=== PATIENT | male | born 1950 | race Caucasian/White ===

== ENCOUNTER 2017-06-12 21:40 | Emergency (ER) | payer BC ==
[~2017-06-12] VITALS: Ht 165.1 cm; Wt 86.7 kg
[~2017-06-12 21:40] MED LIST: FLUT16SP24 NS; IBUP-1542 PO; LIPITOR; NAPROSYN PO; OSLT75C PO; PROM5SYR2 PO; RANITIDINE PO; RTPRO5 INH
[2017-06-12 21:46] VITALS: Ht 165.1 cm; Wt 86.7 kg
[2017-06-12] MEDS ORDERED: METHYLPREDNISOLONE 125 MG INJ IV STA (22:49)
[2017-06-12] MEDS ORDERED: ALBUTEROL 0.083% (NEB) 2.5 MG/3 ML AMP NEB STA (22:49)
[2017-06-12] MEDS ORDERED: IPRATROPIUM (NEB) 0.5 MG/2.5 ML AMP NEB STA (22:49)
--- NOTE | 2017-06-12 23:04 | ERD ---
ER Documentation Chief Complaint Chief Complaint BIB FAMILY C/O SOB X 3 WEEK. HX OF ASTHMA HPI 67-year-old male presents here in emergency department for complaints of shortness of breath cough and wheezing for 3 weeks now. Patient has history of asthma. Patient has been having dry cough, does not cough up any phlegm or blood. Patient is complaining of upper back pain and chest pain from coughing too much. Patient denies any dyspnea on exertion or dizzy on lying down. Patient denies any dizziness. ROS All systems reviewed and are negative except as per history of present illness. Medications Home Meds Active Scripts Ibuprofen* (Motrin*) 600 Mg Tab, 600 MG PO Q6H Y for PAIN, #20 TAB Prov:CARLOS MERCEDES MD 05/16/16 Promethazine HCl/Codeine (Prometh-Codein 6.25-10 mg/5 ml) 5 Ml Syrup, 5 ML PO QID for 5 Days 6 ounces Prov:CARLOS MERCEDES MD 05/16/16 Oseltamivir Phosphate* (Tamiflu*) 75 Mg Capsule, 75 MG PO BID for 5 Days, CAP Prov:CARLOS MERCEDES MD 05/16/16 Reported Medications [Naprosyn] No Conflict Check, PO BID 08/17/13 [Ranitidine] No Conflict Check, 20 MG PO BID 08/17/13 Albuterol Sulfate* (Proventil* Neb) 0.5 Ml Nebu, INH Q4 02/12/12 Fluticasone Propionate* (Flonase* Nasal) 16 Gm [place].susp, NS DAILY 02/12/12 [Lipitor] No Conflict Check 07/13/09 Allergies Allergies: Coded Allergies: No Known Allergy (Verified , 05/27/12) PMhx/Soc History of Surgery: No Anesthesia Reaction: No Hx Neurological Disorder: No Hx Respiratory Disorders: No Hx Cardiac Disorders: No Hx Psychiatric Problems: No Hx Miscellaneous Medical Probl: Yes (HTN, DM, Asthma) Hx Alcohol Use: No Hx Substance Use: No Hx Tobacco Use: No Smoking Status: Never smoker FmHx Family History: No coronary disease, No diabetes, No other Physical Exam Vitals Vital Signs Date Time Temp Pulse Resp B/P Pulse Ox O2 Delivery O2 Flow Rate FiO2 06/12/17 23:10 89 18 96 21 06/12/17 21:46 97.7 90 18 150/82 95 Physical Exam GENERAL: The patient is well developed and appropriate for usual state of health, in no apparent distress. CHEST: Diffuse wheezing noted bilaterally. There are no rales, or rhonchi. HEART: Regular rate and rhythm. No murmurs, clicks, rubs or gallops. No S3 or S4. ABDOMEN: Soft, nontender and nondistended. Good bowel sounds. No rebound or guarding. No gross peritonitis. No gross organomegaly or masses. No Hcun sign or McBurney point tenderness. BACK: No midline or flank tenderness. EXTREMITIES: Equal pulses bilaterally. There is no peripheral clubbing, cyanosis or edema. No focal swelling or erythema. Full range of motion. Grossly neurovascularly intact. NEURO: Alert and oriented. Cranial nerves 2-12 intact. Motor strength in all 4 extremities with 5/5 strength. Sensation grossly intact. Normal speech and gait. SKIN: There is no apparent rash or petechia. The skin is warm and dry. HEMATOLOGIC AND LYMPHATIC: There is no evidence of excessive bruising or lymphedema. No gross cervical, axillary, or inguinal lymphadenopathy. Result Diagram: 06/12/17229906/12/172299 Results 24 hrs Laboratory Tests Test 06/12/17 23:00 White Blood Count 8.110^3/ul Red Blood Count 4.3410^6/ul Hemoglobin 13.8g/dl Hematocrit 40.7% Mean Corpuscular Volume 93.8fl Mean Corpuscular Hemoglobin 31.8pg Mean Corpuscular Hemoglobin Concent 33.9g/dl Red Cell Distribution Width 14.2% Platelet Count 14408^3/UL Mean Platelet Volume 9.9fl Neutrophils % 69.4% Lymphocytes % 22.9% Monocytes % 5.7% Eosinophils % 1.1% Basophils % 0.4% Nucleated Red Blood Cells % 0.0/100WBC Neutrophils # 5.610^3/ul Lymphocytes # 1.910^3/ul Monocytes # 0.510^3/ul Eosinophils # 0.110^3/ul Basophils # 0.010^3/ul Nucleated Red Blood Cells # 0.010^3/ul Sodium Level 141mmol/L Potassium Level 4.5mmol/L Chloride Level 106mmol/L Carbon Dioxide Level 19mmol/L Anion Gap 21 Blood Urea Nitrogen 21mg/dl Creatinine 1.17mg/dl Glucose Level 109mg/dl Calcium Level 9.3mg/dl Total Bilirubin 0.2mg/dl Direct Bilirubin 0.00mg/dl Indirect Bilirubin 0.2mg/dl Aspartate Amino Transf (AST/SGOT) 50IU/L Alanine Aminotransferase (ALT/SGPT) 60IU/L Alkaline Phosphatase 70IU/L Troponin I < 0.012ng/ml B-Type Natriuretic Peptide 80PG/ML Total Protein 7.3g/dl Albumin 4.4g/dl Globulin 2.90g/dl Albumin/Globulin Ratio 1.51 Current Medications Medications (Trade) Dose Ordered Sig/Curt Route PRN Reason Start Time Stop Time Status Last Admin Dose Admin Albuterol (Proventil 0.083% (Neb)) 5 mg ONCE STAT NEB 06/12/17 22:49 06/12/17 22:52 DC 06/12/17 23:06 Ipratropium [place] (Atrovent 0.02% (Neb)) 0.5 mg ONCE STAT NEB 06/12/17 22:49 06/12/17 22:52 DC 06/12/17 23:06 Methylprednisolone Sodium Succinate (Solu-Medrol) 125 mg ONCE STAT IV 06/12/17 22:49 06/12/17 22:52 DC 06/12/17 23:21 Breathing treatment of albuterol and Atrovent was given here in emergency department, after treatment, patient's lungs sounds are clear and patient's oxygenation is better. Patient verbalized feeling much better. Solu-Medrol IM injection was given here in the emergency department for treatment for asthma. EKG was done, read by me and is normal sinus rhythm at a rate of 83, normal axis , there is no ST changes or changes in the EKG that indicates any cardiac emergencies at this time. Patient's EKG was also reviewed by Dr. Lino. Impression: no acute findings on EKG PROCEDURE: Portable chest x-ray. CLINICAL INDICATION: 67-year of age, male. Asthma exacerbation. TECHNIQUE: Portable AP view of the chest. COMPARISON: May 16, 2016 FINDINGS: Cardiomediastinal contours are normal. Lungs are clear. Negative for pleural effusion or pneumothorax. Mild curvature of the upper thoracic spine convex right. Additional comment: None. IMPRESSION: Negative for evidence of an acute chest process. RPTAT: HCTS Physician Neno Date Time Electronically viewed and signed by Alphonso Duran Physician on 06/13/2017 00: 06 CS/ CC: BEKA HICKS CONSTRUCTION ENGINEER Procedures/MDM Medical Decision Making: Patient symptoms are most likely consistent with acute bronchitis, which atypical in origin. There is low suspicion for Pneumonia at this time since patients lungs sounds are clear, patient O2 saturation is normal and patient doesnt show any respiratory distress. Patient s chest xray doesnt show infiltrates or any other cardiopulmonary emergencies at this time. There is low suspicion for other cardiopulmonary emergencies at this time such as CHF, Pulmonary Embolism, Pneumothorax, Aortic Aneurysm or any other cardiopulmonary emergencies at this time. There is low suspicion for sepsis. Patient appears well and is hemodynamically stable. Fever is controlled with medicines. . Disposition: Home. Condition: Stable Prescriptions: Azithromycin, ProAir, Prednisone, Guaifenasin with codeine, Zyrtec Instructions: Patient is advised to take medications as prescribed. Patient is advised to rest. Patient advised to increase fluid intake, do humidifier at home and if possible, do salt water gargles. Patient is advised that if symptoms are worse, shortness of breath, uncontrolled fever, stridor, vomiting, worst signs and symptoms to return to emergency department immediately. Otherwise, patient is advised to follow up with primary doctor in 5-7 days. Disclaimer: Inadvertent spelling and grammatical errors are likely due to EHR/ dictation software use and do not reflect on the overall quality of patient care. Also, please note that the electronic time recorded on this note does not necessarily reflect the actual time of the patient encounter. Departure Diagnosis: Primary Impression: Acute bronchitis Bronchitis organism: unspecified organism Qualified Code: J20.9 - Acute bronchitis, unspecified organism Condition: Stable Patient Instructions: Bronchitis, Antiobiotic Treatment (Adult) Additional Instructions: Patient is advised to take medications as prescribed. Patient is advised to rest. Patient advised to increase fluid intake, do humidifier at home and if possible, do salt water gargles. Patient is advised that if symptoms are worse, shortness of breath, uncontrolled fever, stridor, vomiting, worst signs and symptoms to return to emergency department immediately. Otherwise, patient is advised to follow up with primary doctor in 5-7 days. BEKA HICKS NP Jun 12, 2017 23:04
[2017-06-12 23:18] LABS: BASOPHILS % 0.4 % (0.0-2.0); EOSINOPHILS # 0.1 10^3/ul (0.0-0.5); EOSINOPHILS % 1.1 % (0.0-7.0); HEMATOCRIT 40.7 % (42.0-52.0); HEMOGLOBIN 13.8 g/dl (14.0-18.0); LYMPHOCYTES # 1.9 10^3/ul (0.8-2.9); LYMPHOCYTES % 22.9 % (15.0-51.0); MEAN CORPUSCULAR HEMOGLOBIN 31.8 pg (29.0-33.0); MEAN CORPUSCULAR HGB CONC 33.9 g/dl (32.0-37.0); MEAN CORPUSCULAR VOLUME 93.8 fl (82.0-101.0); MEAN PLATELET VOLUME 9.9 fl (7.4-10.4); MONOCYTE # 0.5 10^3/ul (0.3-0.9); MONOCYTES % 5.7 % (0.0-11.0); NEUTROPHIL # 5.6 10^3/ul (1.6-7.5); NEUTROPHILS % 69.4 % (39.0-77.0); PLATELET COUNT 242 10^3/UL (140-415); RED BLOOD COUNT 4.34 10^6/ul (4.70-6.10); RED CELL DISTRIBUTION WIDTH 14.2 % (11.5-14.5); WHITE BLOOD COUNT 8.1 10^3/ul (4.8-10.8)
[2017-06-12 23:36] LABS: ALANINE AMINOTRANSFERASE 60 IU/L (13-69); ALBUMIN 4.4 g/dl (3.3-4.9); ALBUMIN/GLOBULIN RATIO 1.51; ALKALINE PHOSPHATASE 70 IU/L (42-121); ANION GAP 21 (8-16); ASPARTATE AMINO TRANSFERASE 50 IU/L (15-46); BILIRUBIN,INDIRECT 0.2 mg/dl (0-1.1); BILIRUBIN,TOTAL 0.2 mg/dl (0.2-1.3); BLOOD UREA NITROGEN 21 mg/dl (7-20); CALCIUM 9.3 mg/dl (8.4-10.2); CARBON DIOXIDE 19 mmol/L (21-31); CHLORIDE 106 mmol/L (97-110); CREATININE 1.17 mg/dl (0.61-1.24); GLUCOSE 109 mg/dl (70-220); POTASSIUM 4.5 mmol/L (3.5-5.1); SODIUM 141 mmol/L (135-144); TOTAL PROTEIN 7.3 g/dl (6.1-8.1)
[2017-06-12 23:48] LABS: B-TYPE NATRIURETIC PEPTIDE 80 PG/ML (0-125)
[2017-06-12 23:49] LABS: TROPONIN-I < 0.012 ng/ml (0.00-0.12)
--- NOTE | 2017-06-13 00:06 | RADRPT ---
PROCEDURE: Portable chest x-ray. CLINICAL INDICATION: 67-year of age, male. Asthma exacerbation. TECHNIQUE: Portable AP view of the chest. COMPARISON: May 16, 2016 FINDINGS: Cardiomediastinal contours are normal. Lungs are clear. Negative for pleural effusion or pneumothorax. Mild curvature of the upper thoracic spine convex right. Additional comment: None. IMPRESSION: Negative for evidence of an acute chest process. RPTAT: HCTS Physician Neno Date Time Electronically viewed and signed by Alphonso Duran Physician on 06/13/2017 00:06 CS/
[2017-06-13] MEDS ORDERED: PRED50TA PO (00:53)
[2017-06-13] MEDS ORDERED: GUAI473L22 PO (00:53)
[2017-06-13] MEDS ORDERED: ALBU8.5H3 INH (00:53)
[2017-06-13] MEDS ORDERED: AZIT250T94 PO (00:53)
[2017-06-13] MEDS ORDERED: CETI10CA PO (00:53)
[2017-06-13 01:18] VITALS: BP 141/81; PULSE 81; RESP 18; TEMP 97.7
[2017-06-13] MEDS ORDERED: IPRA3AMP INH (01:18)
== END 2017-06-13 01:19 | disposition home or self-care (01) ==
LOC: FTE 21:40
DX: J20.9 Acute bronchitis, unspecified (principal); J45.909 Unspecified asthma, uncomplicated; I10 Essential (primary) hypertension; E11.9 Type 2 diabetes mellitus without complications
CPT/HCPCS: 71010; 80053; 83880; 84484; 85025; 94664; 96374; 99285; J2930; 93005

== ENCOUNTER 2017-07-01 17:25 | Emergency (ER) | payer BC ==
[~2017-07-01] VITALS: Wt 87.5 kg
[~2017-07-01 17:25] MED LIST changes: +ALBU8.5H3 INH; +AZIT250T94 PO; +CETI10CA PO; +GUAI473L22 PO; +IPRA3AMP INH; +PRED50TA PO
== END 2017-07-01 20:15 | disposition left against medical advice (07) ==
LOC: E/R 17:25
DX: Z53.21 Procedure and treatment not carried out due to patient leaving prior to being seen by health care provider (principal)

== ENCOUNTER 2017-07-26 09:14 | Emergency (ER) | END 2017-07-26 12:54 | disposition home or self-care (01) ==

== ENCOUNTER 2018-06-30 22:12 | Observation (INO) | END 2018-07-02 17:20 | disposition home health service (06) ==

== ENCOUNTER 2018-09-28 22:39 | Emergency (ER) | payer OTHER, MEDICAID ==
[~2018-09-28] VITALS: Wt 87.5 kg
[~2018-09-28 22:39] MED LIST changes: +ALBU2.5V3 NEB; -ALBU8.5H3 INH; +ALBU8.5H8 INH; +AMLO5TAB4 PO; +ASPI-831 PO; -AZIT250T94 PO; -CETI10CA PO; +D-ME118S24 PO; +FINA5TAB4 PO; -FLUT16SP24 NS; +FLUT1BLS INHALATION; -GUAI473L22 PO; -IBUP-1542 PO; -IPRA3AMP INH; +LEVO500T48 PO; -LIPITOR; +METF500T24 PO; +MONT10TA24 PO; -NAPROSYN PO; +OMEP20CA16 PO; -OSLT75C PO; +PRED20TA PO; -PRED50TA PO; -PROM5SYR2 PO; +PULM180 INHALATION; -RANITIDINE PO; -RTPRO5 INH; +SIMV10TA PO; +TAMS0.4C2 PO
[2018-09-28 22:47] VITALS: Wt 87.5 kg
[2018-09-28] MEDS ORDERED: IPRATROPIUM (NEB) 0.5 MG/2.5 ML AMP INH STA (23:08)
[2018-09-28] MEDS ORDERED: METHYLPREDNISOLONE 125 MG INJ IV STA (23:08)
[2018-09-28] MEDS ORDERED: ALBUTEROL 0.5% (NEB) 2.5 MG/0.5 ML AMP INH STA (23:08)
[2018-09-29] MEDS ORDERED: POTASSIUM CHLORIDE (SR) 20 MEQ TAB PO STA (00:12)
--- NOTE | 2018-09-29 01:40 | ERD ---
ER Documentation Chief Complaint Chief Complaint BIB SELF, CC: ASTHMA, INH NOT HELPING, SOB, COUGHING X 2 WEEKS HPI Is a 68-year-old male brought in by himself with complaints of cough and asthma. She has been feeling short of breath. Coughing for 2 weeks p.o. mild productive cough. No fevers or chills. No other current complaints. ROS All systems reviewed and are negative except as per history of present illness. Medications Home Meds Active Scripts D-Methorphan Hb/P-Epd HCl/Bpm (Uwmxjjdccy-Sphpmvwdrrm-Ku Syr) 118 Ml Syrup, 5 ML PO Q4H PRN for COUGH, #1 BOTTLE Prov:RUIZCHEPE 09/02/18 Prednisone* (Prednisone*) 20 Mg Tab, 20 MG PO DAILY for asthma for 3 Days, #3 TAB Prov:JOSEPHCHEPE 09/02/18 Budesonide (Pulmicort Flexhaler) 180 Mcg Aer.pow.ba, 1 PUFF INHALATION BID for asthma, #1 EA Prov:JOSEPHCHEPE 09/02/18 Levofloxacin* (Levaquin*) 500 Mg Tablet, 500 MG PO DAILY, #7 TAB Prov:QUINN CRAIG F 07/02/18 Aspirin (Aspirin) 81 Mg Chew, 81 MG PO DAILY for 30 Days, TAB Prov:QUINN CRAIG 07/02/18 Fluticasone/Vilanterol (Breo Ellipta 200-25 Mcg INH) 1 Each Blst.w.dev, 1 PUFF INHALATION DAILY, #1 INHALER 3 Refills Prov:QUINN CRAIG 07/02/18 Reported Medications Albuterol Sulfate* (Proair HFA*) 8.5 Gm Hfa.aer.ad, 2 PUFF INH Q4H PRN for WHEEZING AND SOB, #1 INHALER 06/30/18 Albuterol Sulfate* (Albuterol Sulfate* Neb) 0.083%-3 Ml Neb, 2.5 MG NEB Q4H PRN for WHEEZING AND SOB, #30 VIAL 06/30/18 Simvastatin* (Zocor*) 10 Mg Tablet, 10 MG PO QHS, #30 TAB 06/30/18 Omeprazole* (Omeprazole*) 20 Mg Capsule.dr, 20 MG PO DAILY, #30 CAP 06/30/18 Montelukast Sodium* (Montelukast Sodium*) 10 Mg Tablet, 10 MG PO QHS, #30 TAB 06/30/18 Amlodipine Besylate* (Norvasc*) 5 Mg Tablet, 5 MG PO DAILY, TAB 06/30/18 Metformin Hcl* (Metformin Hcl*) 500 Mg Tablet, 500 MG PO WITH BREAKFAST DINNE, #60 TAB 06/30/18 Finasteride* (Finasteride*) 5 Mg Tablet, 5 MG PO DAILY, TAB 06/30/18 Tamsulosin Hcl* (Tamsulosin Hcl*) 0.4 Mg Cap.er.24h, 0.4 MG PO HS, CAP 06/30/18 Allergies Allergies: Coded Allergies: grass pollen (Verified Allergy, Intermediate, Shortness of Breath, 07/01/18) perfume (Verified Allergy, Mild, Shortness of Breath, 07/01/18) PMhx/Soc Medical and Surgical Hx: pt denies Surgical Hx History of Surgery: No Anesthesia Reaction: No Hx Neurological Disorder: No Hx Respiratory Disorders: Yes (Asthma; home oxygen 4L/NC at night only) Hx Cardiac Disorders: No (hypertension) Hx Psychiatric Problems: Yes (Depression) Hx Miscellaneous Medical Probl: Yes (Possible diagnosis gout) Hx Alcohol Use: Yes (2-3 times a week/glass of wine) Hx Substance Use: No Hx Tobacco Use: No Smoking Status: Never smoker Physical Exam Vitals Vital Signs Date Temp Pulse Resp B/P (MAP) Pulse Ox O2 O2 Flow FiO2 Time Delivery Rate 09/28/18 89 18 137/86 96 Room Air 23:38 (103) 09/28/18 95 24 98 21 23:18 09/28/18 98.9 93 29 158/85 87 22:47 (109) Physical Exam Const: No acute distress Head: Atraumatic Eyes: Normal Conjunctiva ENT: Normal External Ears, Nose and Mouth. Neck: Full range of motion. No meningismus. Resp: Scattered wheezes Cardio: Regular rate and rhythm, no murmurs Abd: Soft, non tender, non distended. Normal bowel sounds Skin: No petechiae or rashes Back: No midline or flank tenderness Ext: No cyanosis, or edema Neur: Awake and alert Psych: Normal Mood and Affect Result Diagram: 09/28/18 0575 09/28/18 6264 Results 24 hrs Laboratory Tests Test 09/28/18 23:08 09/28/18 23:34 Blood Gas Specimen Source Blood arterial Arterial Blood Date Drawn 09/28/2018 11:30:15 PM Arterial Blood pH (Temp corrected) 7.553 Arterial Blood pCO2 (Temp correct) 28.5 mmhg Arterial Blood pO2 (Temp corrected) 178.0 mmHG Arterial Blood HCO3 24.5 mmol/L Arterial Blood Base Excess 3.2 mmol/L Arterial Blood Oxygen Saturation 99.0 mmHG Bryn Test ACCEPTAB Arterial Blood Gas Puncture Site Right Radial Arterial Blood Carboxyhemoglobin 0.3 % Arterial Blood Methemoglobin 0.3 % Blood Gas A-a O2 Differential 168.0 mmHg Oxyhemoglobin Percent 98.4 % Blood Gas Temperature 37.0 C Blood Gas Modality AEROSOL MASK FiO2 53.0 % Blood Gas Critical Value Read Back Radha SHEIKH MD Blood Gas Notified Whom AA Blood Gas Notified Time 09/28/2018 11:41:11 PM White Blood Count 9.7 10^3/ul Red Blood Count 4.35 10^6/ul Hemoglobin 13.0 g/dl Hematocrit 39.7 % Mean Corpuscular Volume 91.3 fl Mean Corpuscular Hemoglobin 29.9 pg Mean Corpuscular Hemoglobin Concent 32.7 g/dl Red Cell Distribution Width 13.9 % Platelet Count 256 10^3/UL Mean Platelet Volume 9.6 fl Immature Granulocytes % 0.700 % Neutrophils % 64.9 % Lymphocytes % 19.4 % Monocytes % 13.5 % Eosinophils % 1.2 % Basophils % 0.3 % Nucleated Red Blood Cells % 0.0 /100WBC Immature Granulocytes # 0.070 10^3/ul Neutrophils # 6.3 10^3/ul Lymphocytes # 1.9 10^3/ul Monocytes # 1.3 10^3/ul Eosinophils # 0.1 10^3/ul Basophils # 0.0 10^3/ul Nucleated Red Blood Cells # 0.0 10^3/ul Sodium Level 141 mmol/L Potassium Level 2.9 mmol/L Chloride Level 111 mmol/L Carbon Dioxide Level 21 mmol/L Anion Gap 9 Blood Urea Nitrogen 18 mg/dl Creatinine 0.88 mg/dl Est Glomerular Filtrat Rate mL/min > 60 mL/min Glucose Level 80 mg/dl Calcium Level 7.0 mg/dl Current Medications Medications Dose Sig/Curt Start Time Status Last (Trade) Ordered Route PRN Stop Time Admin Dose Reason Admin Albuterol 10 mg ONCE STAT 09/28/18 DC 09/28/18 (Proventil INH 23:08 09/28/18 23:18 0.5% (Neb)) 23:10 Ipratropium 1 mg ONCE STAT 09/28/18 DC 09/28/18 [place] INH 23:08 09/28/18 23:18 (Atrovent 23:10 0.02% (Neb)) 125 mg ONCE STAT 09/28/18 DC 09/28/18 Methylprednis IV 23:08 09/28/18 23:31 olone Sodium 23:10 Succinate (Solu-Medrol) Potassium 40 meq ONCE STAT 09/29/18 DC 09/29/18 Chloride PO 00:12 09/29/18 01:09 (Klor-Con 20) 00:31 Procedures/MDM Emergency department course: Patient seen and evaluated at [facility]. Patient and family evaluation. Had blood work done. A stat chest x-ray. Was given continuous stabilization therapy. Given Solu-Medrol intravenously. Given potassium p.o. for repletion. Chest X-ray 1V Interpreted by me: Soft Tissue: No acute abnormalities Bones: No acute abnormalities Mediastinum/Cardiac Silhouette/Lungs: [No acute abnormalities] Medical decision making: Patient's respiratory status has stabilized while in the department and is appropriate for outpatient work up. Exam and work up not consistent w/ impending respiratory failure or cardiovascular collapse. Departure Diagnosis: Primary Impression: Bronchitis Condition: Stable ESTELLA SHEIKH Sep 29, 2018 01:40
[2018-09-29] MEDS ORDERED: BENZ-6 PO (01:41)
[2018-09-29] MEDS ORDERED: MED4DP PO (01:41)
[2018-09-29] MEDS ORDERED: AZIT250T PO (01:41)
[2018-09-29 02:01] VITALS: BP 136/81; PULSE 93; RESP 17
== END 2018-09-29 02:03 | disposition home or self-care (01) ==
LOC: E/R 22:39
DX: J20.9 Acute bronchitis, unspecified (principal); J45.901 Unspecified asthma with (acute) exacerbation; Z79.82 Long term (current) use of aspirin; Z79.84 Long term (current) use of oral hypoglycemic drugs
CPT/HCPCS: 36600; 71045; 80048; 82803; 85025; 94644; 96374; 99284; J2930

== ENCOUNTER 2019-03-22 14:26 | Observation (INO) | payer OTHER, MEDICAID ==
[~2019-03-22] VITALS: Ht 165.1 cm; Wt 88.3 kg
[~2019-03-22 14:26] MED LIST changes: +AZIT250T PO; +AZIT250T13 PO; +BENZ-6 PO; +D-ME473S2 PO; +GLYC10.7 INH; +MED4DP PO
[2019-03-22 14:42] VITALS: Ht 165.1 cm; Wt 88.3 kg
[2019-03-22] MEDS ORDERED: ALBUTEROL 0.083% (NEB) 2.5 MG/3 ML AMP NEB STA (16:02)
[2019-03-22] MEDS ORDERED: SOD CHLORIDE 0.9% 1,000 ML IV STA (16:02)
[2019-03-22] MEDS ORDERED: IPRATROPIUM (NEB) 0.5 MG/2.5 ML AMP NEB STA (16:02)
[2019-03-22] MEDS ORDERED: METHYLPREDNISOLONE 125 MG INJ IV STA (16:02)
[2019-03-22] MEDS ORDERED: NITROGLYCERIN 2% 1 GM OINT PKT TD STA (17:57)
[2019-03-22] MEDS ORDERED: ASPIRIN 81 MG TAB PO ONE (18:00)
[2019-03-22] MEDS ORDERED: NITROGLYCERIN (SL) 0.4 MG TAB SL PRN (18:00)
[2019-03-22] MEDS ORDERED: morphine 4 MG/ML VIAL IV STA (19:26)
[2019-03-22] MEDS ORDERED: ONDANSETRON 4 MG INJ IV STA (19:26)
[2019-03-22] MEDS ORDERED: ONDANSETRON 4 MG INJ IV PRN (20:30)
[2019-03-22] MEDS ORDERED: ACETAMINOPHEN 325 MG TAB PO PRN (20:30)
[2019-03-22] MEDS ORDERED: IPRATROPIUM (NEB) 0.5 MG/2.5 ML AMP HHN STA (23:23)
[2019-03-22] MEDS ORDERED: ALBUTEROL 0.083% (NEB) 2.5 MG/3 ML AMP HHN STA (23:23)
[2019-03-22] MEDS ORDERED: IPRATROPIUM (NEB) 0.5 MG/2.5 ML AMP HHN PRN (23:30)
[2019-03-22] MEDS ORDERED: ALBUTEROL 0.083% (NEB) 2.5 MG/3 ML AMP HHN PRN (23:30)
[2019-03-23] MEDS ORDERED: GLUCOSE GEL 15 GRAM TUBE BUCCAL PRN (03:00)
[2019-03-23] MEDS ORDERED: GLUCAGON 1 MG INJ IM PRN (03:00)
[2019-03-23] MEDS ORDERED: ACETAMINOPHEN 325 MG TAB PO PRN (03:00)
[2019-03-23] MEDS ORDERED: GLUCOSE GEL 15 GRAM TUBE PO PRN ×2 (03:00)
[2019-03-23] MEDS ORDERED: DEXTROSE 50% 50 ML SYRINGE IV PRN ×2 (03:00)
[2019-03-23] MEDS ORDERED: ONDANSETRON 4 MG INJ IV PRN (03:00)
[2019-03-23] MEDS ORDERED: ALBUTEROL 0.083% (NEB) 2.5 MG/3 ML AMP HHN PRN (03:00)
[2019-03-23] MEDS ORDERED: morphine 2 MG INJ IV PRN (03:00)
[2019-03-23] MEDS: ALBUTEROL/IPRATROPIUM (NEB) 3 ML AMP HHN SCH ×3 (03:26→13:28)
[2019-03-23] MEDS: METHYLPREDNISOLONE 125 MG INJ IV SCH ×2 (04:22→11:36)
[2019-03-23 04:26] VITALS: BP 112/62; PULSE 102; RESP 18
[2019-03-23] MEDS ORDERED: PANTOPRAZOLE (EC) 40 MG TAB PO SCH (06:00)
[2019-03-23 07:43] VITALS: BP 126/64; PULSE 129; RESP 22
[2019-03-23] MEDS: INSULIN ASPART [NOVOLOG] 3 ML PEN SC SCH ×2 (07:51→11:43)
[2019-03-23] MEDS ORDERED: INSULIN GLARGINE [LANTus] (100 UNITS/ML) SYG SC SCH (08:00)
[2019-03-23] MEDS ORDERED: NON-FORMULARY/PATIENT OWN MED (Omeprazole* 20 MG) PO SCH (09:00)
[2019-03-23] MEDS ORDERED: ASPIRIN 81 MG TAB PO SCH (09:00)
[2019-03-23] MEDS ORDERED: AMLODIPINE 5 MG TAB PO SCH (09:00)
[2019-03-23] MEDS ORDERED: FINASTERIDE 5 MG TAB PO SCH (09:00)
[2019-03-23] MEDS ORDERED: ENOXAPARIN 40 MG/0.4 ML SYG SC SCH (09:00)
[2019-03-23 11:43] VITALS: BP 119/66; PULSE 109; RESP 20
[2019-03-23 15:48] VITALS: BP 128/77; PULSE 121; RESP 20
[2019-03-23] MEDS ORDERED: MONTELUKAST 10 MG TAB PO SCH (21:00)
[2019-03-23] MEDS ORDERED: ATORVASTATIN 10 MG TAB PO SCH (21:00)
[2019-03-23] MEDS ORDERED: NON-FORMULARY/PATIENT OWN MED (Simvastatin* (Zocor*) 10 MG) PO SCH (21:00)
[2019-03-23] MEDS ORDERED: TAMSULOSIN (SR) 0.4 MG CAP PO SCH (21:00)
== END 2019-03-23 16:44 | disposition home or self-care (01) ==
LOC: E/R 14:26 → 6WM 20:21
PROVIDERS: ADMIT Legal Medicine; ATTEND Legal Medicine
DX: J45.901 Unspecified asthma with (acute) exacerbation (principal); J20.9 Acute bronchitis, unspecified; I10 Essential (primary) hypertension; E11.9 Type 2 diabetes mellitus without complications; E78.5 Hyperlipidemia, unspecified; N40.0 Benign prostatic hyperplasia without lower urinary tract symptoms; Z79.82 Long term (current) use of aspirin; Z99.81 Dependence on supplemental oxygen; G47.30 Sleep apnea, unspecified
CPT/HCPCS: 71045; 80048; 82962; 84484; 85025; 93005; 94640; 94664; G0378; J1650; J1815; J2270; J2405; J2930; J7030; 96374; 96375